=== PATIENT | female | born 1940 | race Caucasian/White ===

== ENCOUNTER 2016-10-01 12:50 | Outpatient (CLI) | payer MEDICARE, BC, OTHER ==
[~2016-10-01 12:50] MED LIST: ALLERGY10 MG PO; ALPRAZOLAM0.25 MG PO; AMLO2.5T PO; ANTACID PO; BAYER ASPIRIN R81 MG PO; CALAN80 MG PO; CARAFATE 1GM TAB1 GM PO; CLONIDINE 0.2M0.2 MG PO; CRESTOR5 MG PO; DOXYCYCLINE HY100 MG PO; ESCITALOPRAM 2020 MG PO; LEXAPRO20 MG; LISINOPRIL2.5 MG PO; NASONEX0.05 MG/AC NS; NITROGLYCERIN0.4 M1 SL; OMEPRAZOLE40 MG PO; OMNICEF 300 MG300 MG PO; PROMETHAZINE25 M1 PO; SIMVASTATIN20 MG; SINGULAIR 10 MG10 MG PO; SKELAXIN800 MG; TOPAMAX50 MG PO; TOPROL XL 25MG25 MG PO; WARFARIN SOD5 MG PO; WARFARIN SODIUM10 MG PO
[2016-10-01 13:20] VITALS: BP 146/72
== END 2016-10-01 13:50 | disposition home or self-care (01) ==
LOC: COP 12:50
DX: M81.0 Age-related osteoporosis without current pathological fracture (principal)
CPT/HCPCS: J0897

== ENCOUNTER 2016-10-11 14:40 | Outpatient (CLI) | payer MEDICARE, BC, OTHER | END 2016-10-11 16:09 | LOC: ACC 14:40 | DX: Z95.2 Presence of prosthetic heart valve (principal); Z79.01 Long term (current) use of anticoagulants; Z51.81 Encounter for therapeutic drug level monitoring | CPT/HCPCS: G0463 ==

== ENCOUNTER 2016-12-21 15:02 | Outpatient (CLI) | payer MEDICARE, BC, OTHER ==
[2016-12-21 16:17] LABS: BUN 14 mg/dL (7-18); GFR (ESTIMATED) 70 ML/MIN (59-)
[2016-12-21 17:38] LABS: HEMOGLOBIN 14.7 g/dL (12.2-16.2); LYMPH # 3.6 K/mm3 (0.7-4.5); LYMPH % 33.8 % (10-50.0)
== END 2016-12-21 16:07 ==
LOC: ACC 15:02
PROVIDERS: Internal Medicine Adolescent Medicine
DX: Z95.2 Presence of prosthetic heart valve (principal); Z79.01 Long term (current) use of anticoagulants; Z51.81 Encounter for therapeutic drug level monitoring
CPT/HCPCS: G0463

== ENCOUNTER 2017-01-25 14:58 | Outpatient (CLI) | payer MEDICARE, BC, OTHER | END 2017-01-25 16:23 | LOC: ACC 14:58 | DX: Z95.2 Presence of prosthetic heart valve (principal); Z79.01 Long term (current) use of anticoagulants; Z51.81 Encounter for therapeutic drug level monitoring | CPT/HCPCS: G0463 ==

== ENCOUNTER 2017-05-25 13:53 | Outpatient (CLI) | payer MEDICARE, BC, OTHER | END 2017-05-25 14:58 | LOC: ACC 13:53 | DX: Z95.2 Presence of prosthetic heart valve (principal); Z79.01 Long term (current) use of anticoagulants; Z51.81 Encounter for therapeutic drug level monitoring | CPT/HCPCS: G0463 ==

== ENCOUNTER 2017-07-06 13:31 | Outpatient (CLI) | payer MEDICARE, BC, OTHER | END 2017-07-06 15:26 | LOC: ACC 13:31 | DX: Z95.2 Presence of prosthetic heart valve (principal); Z79.01 Long term (current) use of anticoagulants; Z51.81 Encounter for therapeutic drug level monitoring | CPT/HCPCS: G0463 ==

== ENCOUNTER 2017-08-04 15:03 | Outpatient (CLI) | payer MEDICARE, OTHER | END 2017-08-04 16:08 | LOC: ACC 15:03 | DX: Z95.2 Presence of prosthetic heart valve (principal); Z79.01 Long term (current) use of anticoagulants; Z51.81 Encounter for therapeutic drug level monitoring | CPT/HCPCS: G0463 ==